=== PATIENT | male | born 1990 | race Caucasian/White ===

== ENCOUNTER 2018-08-08 09:01 | Emergency (ER) | payer MEDICAID ==
[~2018-08-08] VITALS: Ht 175.3 cm; Wt 70.7 kg
[~2018-08-08 09:01] MED LIST: HYDR50TA13 PO
[2018-08-08] MEDS ORDERED: FLUT9.9S NS (09:41)
[2018-08-08] MEDS ORDERED: DIPH25CA61 PO (09:41)
[2018-08-08] MEDS ORDERED: LORazepam 1MG TABLET ONE (09:46)
[2018-08-08] MEDS ORDERED: ONDANSETRON ODT 4 MG ONE (09:46)
[2018-08-08] MEDS ORDERED: THIAMINE 100MG TABLET ONE (09:46)
--- NOTE | 2018-08-08 09:49 | NUR ---
PATIENT MEDICATED AND RESTING WITH NO COMPLAINTS. FAMILY AT BEDSIDE.
[2018-08-08] MEDS ORDERED: THIAMINE 100MG TABLET PO ONE (10:00)
[2018-08-08] MEDS ORDERED: LORazepam 1MG TABLET PO ONE (10:00)
[2018-08-08] MEDS ORDERED: ONDANSETRON ODT 4 MG PO ONE (10:00)
--- NOTE | 2018-08-08 10:15 | NUR ---
RECEIVED REPORT FROM SHARA ALCANTAR. WAITING FOR LABS TO BE DONE.
[2018-08-08 10:42] LABS: BASOPHILS # (AUTO) 0.04 x10^3/uL (0-0.1); BASOPHILS % (AUTO) 0 % (0-1); EOSINOPHILS % (AUTO) 1 % (1-7); LYMPHOCYTES # (AUTO) 1.71 x10^3/uL (1-3.4); LYMPHOCYTES % (AUTO) 15 % (22-44); MD NO; MEAN CORPUSCULAR HEMOGLOBIN 29.9 pg (27.5-34.5); MEAN CORPUSCULAR HGB CONC 33.7 g/dL (33.2-36.2); MEAN CORPUSCULAR VOLUME 88.8 fL (81-97); MEAN PLATELET VOLUME 9.6 fL (7.4-10.4); MONOCYTES # (AUTO) 0.76 x10^3/uL (0.2-0.8); MONOCYTES % (AUTO) 7 % (2-9); NEUTROPHILS # (AUTO) 8.83 x10^3/uL (1.8-6.8); NEUTROPHILS % (AUTO) 77 % (42-75); PLATELET COUNT 169 x10^3/uL (130-400); RED BLOOD COUNT 5.67 x10^6/uL (4.38-5.82); RED CELL DISTRIBUTION WIDTH 13.9 % (9.4-14.8)
[2018-08-08 10:50] LABS: ALBUMIN 3.9 g/dL (3.4-5.0); ANION GAP 9 mmol/L (5-15); CHLORIDE 102 mmol/L (98-107); CREATININE 0.89 mg/dL (0.7-1.3)
--- NOTE | 2018-08-08 10:58 | NUR ---
CHART UP FOR MD RECHECK. PT AWARE.
[2018-08-08 11:39] VITALS: BP 128/85
== END 2018-08-08 11:41 | disposition home or self-care (01) ==
LOC: ED 10:33
DX: F10.220 Alcohol dependence with intoxication, uncomplicated (principal)
CPT/HCPCS: 36415; 80048; 80307; 82040; 83690; 85025; 99284; Q0162

== ENCOUNTER 2018-09-01 21:41 | Emergency (ER) | payer MEDICAID ==
[~2018-09-01] VITALS: Ht 175.3 cm; Wt 71.0 kg
[~2018-09-01 21:41] MED LIST changes: +DIPH25CA61 PO; +FLUT9.9S NS
--- NOTE | 2018-09-01 22:00 | NUR ---
ASSUMED CARE OF PATIENT. PATIENT BIB [facility] FOR ETOH WD. PT REPORTS HIS LAST DRINK WAS ONE HOUR AGO. PT REPORTS HE IS FEELING ANXIOUS AND HE HAS BEEN BINGE DRINKING SINCE August. VS STABLE. DR MARTINEZ HAS SEEN PATIENT. HEARING AID DISPENSER ON. NSR NOTED. CALL LIGHT IN PLACE WILL CONTINUE TO MONITOR.
[2018-09-01 22:37] LABS: BASOPHILS # (AUTO) 0.04 x10^3/uL (0-0.1); BASOPHILS % (AUTO) 1 % (0-1); EOSINOPHILS # (AUTO) 0.12 x10^3/uL (0-0.4); EOSINOPHILS % (AUTO) 2 % (1-7); LYMPHOCYTES # (AUTO) 2.57 x10^3/uL (1-3.4); LYMPHOCYTES % (AUTO) 44 % (22-44); MD NO; MEAN CORPUSCULAR HEMOGLOBIN 30.9 pg (27.5-34.5); MEAN CORPUSCULAR HGB CONC 33.7 g/dL (33.2-36.2); MEAN CORPUSCULAR VOLUME 91.5 fL (81-97); MEAN PLATELET VOLUME 9.5 fL (7.4-10.4); MONOCYTES # (AUTO) 0.69 x10^3/uL (0.2-0.8); MONOCYTES % (AUTO) 12 % (2-9); NEUTROPHILS # (AUTO) 2.49 x10^3/uL (1.8-6.8); NEUTROPHILS % (AUTO) 42 % (42-75); PLATELET COUNT 139 x10^3/uL (130-400); RED BLOOD COUNT 5.49 x10^6/uL (4.38-5.82); RED CELL DISTRIBUTION WIDTH 14.3 % (9.4-14.8)
[2018-09-01 22:41] LABS: ALANINE AMINOTRANSFERASE 166 U/L (12-78); ALBUMIN 4.1 g/dL (3.4-5.0); ANION GAP 13 mmol/L (5-15); CALCIUM 8.7 mg/dL (8.5-10.1); CHLORIDE 107 mmol/L (98-107); CREATININE 0.96 mg/dL (0.7-1.3)
[2018-09-01 22:43] LABS: ALKALINE PHOSPHATASE 95 U/L (45-117); BILIRUBIN,TOTAL 0.6 mg/dL (0.2-1.0); TOTAL PROTEIN 8.2 g/dL (6.4-8.2)
--- NOTE | 2018-09-01 23:03 | NUR ---
PT RESTING IN ROOM. NO ACUTE DISTRESS NOTED. CALL LIGHT IN PLACE. WILL CONTINUE TO MONITOR.
[2018-09-01 23:32] VITALS: BP 114/79
== END 2018-09-01 23:34 | disposition home or self-care (01) ==
LOC: ED 23:11
DX: F41.1 Generalized anxiety disorder (principal); F10.120 Alcohol abuse with intoxication, uncomplicated; F31.9 Bipolar disorder, unspecified
CPT/HCPCS: 36415; 71045; 80053; 80307; 85025; 93005; 99284

== ENCOUNTER 2018-10-07 02:19 | Emergency (ER) | payer MEDICAID ==
[~2018-10-07] VITALS: Ht 172.7 cm; Wt 75.0 kg
[2018-10-07] MEDS ORDERED: CHLO25CA9 PO (02:34)
--- NOTE | 2018-10-07 02:35 | NUR ---
[facility] STABLE HOME MED UPDATED PT IS RESTING NOW
--- NOTE | 2018-10-07 02:54 | NUR ---
RECEIVED REPORT FROM MACKENZIE RAMOS TO ASSUME CARE OF PTRegan APPLE AT BS FOR EKG.
--- NOTE | 2018-10-07 04:47 | NUR ---
given dc instruction pt understood pt up ambulated to check out no c/o
[2018-10-07 04:48] VITALS: BP 104/68
== END 2018-10-07 04:50 | disposition home or self-care (01) ==
LOC: ED 04:38
DX: F41.1 Generalized anxiety disorder (principal); F10.120 Alcohol abuse with intoxication, uncomplicated; R07.89 Other chest pain; F31.9 Bipolar disorder, unspecified; F17.200 Nicotine dependence, unspecified, uncomplicated
CPT/HCPCS: 71045; 93005; 99284

== ENCOUNTER 2019-02-10 02:12 | Emergency (ER) | payer MEDICAID ==
[~2019-02-10] VITALS: Ht 175.3 cm; Wt 64.0 kg
[~2019-02-10 02:12] MED LIST changes: +CHLO25CA9 PO
[2019-02-10] MEDS ORDERED: SODIUM CHLORIDE 0.9% 1,000ML IVBOLUS ONE (02:30)
[2019-02-10] MEDS ORDERED: SODIUM CHLORIDE FLUSH 10ML SYR IVF ONE (02:30)
[2019-02-10] MEDS ORDERED: LORazepam 2 MG/ML, 1ML IVPush PRN (02:30)
[2019-02-10] MEDS ORDERED: MAGNESIUM SULFATE 1 GM, THIAMINE 100 MG, FOLIC ACID 1 MG, MVI ADULT 10 ML in SODIUM CHL... IV ONE (02:30)
[2019-02-10] MEDS ORDERED: LORazepam 2 MG/ML, 1ML ONE (02:48)
[2019-02-10 03:02] LABS: BASOPHILS # (AUTO) 0.05 x10^3/uL (0-0.1); BASOPHILS % (AUTO) 0 % (0-1); EOSINOPHILS # (AUTO) 0.05 x10^3/uL (0-0.4); EOSINOPHILS % (AUTO) 0 % (1-7); LYMPHOCYTES # (AUTO) 3.87 x10^3/uL (1-3.4); LYMPHOCYTES % (AUTO) 24 % (22-44); MD NO; MEAN CORPUSCULAR HEMOGLOBIN 30.2 pg (27.5-34.5); MEAN CORPUSCULAR HGB CONC 33.5 g/dL (33.2-36.2); MEAN CORPUSCULAR VOLUME 90.3 fL (81-97); MEAN PLATELET VOLUME 8.8 fL (7.4-10.4); MONOCYTES # (AUTO) 0.93 x10^3/uL (0.2-0.8); MONOCYTES % (AUTO) 6 % (2-9); NEUTROPHILS # (AUTO) 11.42 x10^3/uL (1.8-6.8); NEUTROPHILS % (AUTO) 70 % (42-75); PLATELET COUNT 248 x10^3/uL (130-400); RED BLOOD COUNT 5.89 x10^6/uL (4.38-5.82); RED CELL DISTRIBUTION WIDTH 13.6 % (9.4-14.8)
[2019-02-10 03:14] LABS: ALANINE AMINOTRANSFERASE 45 U/L (12-78); ALBUMIN 4.2 g/dL (3.4-5.0); ANION GAP 16 mmol/L (5-15); CALCIUM 8.8 mg/dL (8.5-10.1); CHLORIDE 98 mmol/L (98-107); CREATININE 0.98 mg/dL (0.7-1.3)
[2019-02-10 03:17] LABS: ALKALINE PHOSPHATASE 78 U/L (45-117); BILIRUBIN,TOTAL 1.1 mg/dL (0.2-1.0); TOTAL PROTEIN 8.8 g/dL (6.4-8.2)
--- NOTE | 2019-02-10 03:38 | NUR ---
STARTED ON BANANA BAG. AMBULATORY TO RESTROOM C STEADY GAIT
--- NOTE | 2019-02-10 04:28 | NUR ---
MOTHER AT , REQUESTING TO TAKE PT TO [facility]. PA AWARE/. BANANA BAG INFUSING.
[2019-02-10 05:16] VITALS: BP 107/72
== END 2019-02-10 05:19 | disposition home or self-care (01) ==
LOC: ED 03:29
DX: F10.229 Alcohol dependence with intoxication, unspecified (principal); F17.210 Nicotine dependence, cigarettes, uncomplicated; R11.2 Nausea with vomiting, unspecified
CPT/HCPCS: 36415; 80053; 80307; 83690; 85025; 96361; 96374; 99283; J2060; J7030

== ENCOUNTER 2019-03-25 22:11 | Emergency (ER) | payer MEDICAID ==
[~2019-03-25] VITALS: Ht 175.3 cm; Wt 68.0 kg
[2019-03-25 22:17] VITALS: BP 144/88
[2019-03-25] MEDS ORDERED: ONDANSETRON 2MG/ML, 2ML ONE (23:17)
[2019-03-25] MEDS ORDERED: ONDANSETRON 2MG/ML, 2ML IVPush ONE (23:30)
== END 2019-03-25 23:36 | disposition home or self-care (01) ==
LOC: ED 23:05
DX: F10.120 Alcohol abuse with intoxication, uncomplicated (principal); F17.200 Nicotine dependence, unspecified, uncomplicated; F41.9 Anxiety disorder, unspecified; F32.9 Major depressive disorder, single episode, unspecified; Y90.0 Blood alcohol level of less than 20 mg/100 ml
CPT/HCPCS: 93005; 99283

== ENCOUNTER 2019-04-22 18:27 | Emergency (ER) | payer MEDICAID ==
[~2019-04-22] VITALS: Ht 175.3 cm; Wt 68.0 kg
[2019-04-22] MEDS ORDERED: ONDANSETRON ODT 8 MG ONE (18:56)
[2019-04-22] MEDS ORDERED: ONDANSETRON ODT 8 MG PO ONE (19:00)
[2019-04-22] MEDS ORDERED: PLEASE ENTER HEIGHT AND WEIGHT MC SCH (19:00)
--- NOTE | 2019-04-22 19:07 | NUR ---
LABS DRAWN BY TECH. [facility] GIVEN PER ERP ORDER FOR NAUSEA. URINE COLLECTED/SENT TO LAB. CALL LIGHT WITHIN REACH. VSS.
[2019-04-22 19:15] LABS: CULTURE INDICATED? NO; MICROSCOPIC NOT IND
[2019-04-22 19:21] LABS: ALANINE AMINOTRANSFERASE 85 U/L (12-78); ALBUMIN 4.3 g/dL (3.4-5.0); ANION GAP 19 mmol/L (5-15); CALCIUM 8.6 mg/dL (8.5-10.1); CHLORIDE 94 mmol/L (98-107); CREATININE 0.85 mg/dL (0.7-1.3)
[2019-04-22 19:22] LABS: BASOPHILS # (AUTO) 0.04 x10^3/uL (0-0.1); BASOPHILS % (AUTO) 0 % (0-1); EOSINOPHILS # (AUTO) 0.06 x10^3/uL (0-0.4); EOSINOPHILS % (AUTO) 1 % (1-7); LYMPHOCYTES # (AUTO) 3.59 x10^3/uL (1-3.4); LYMPHOCYTES % (AUTO) 26 % (22-44); MD NO; MEAN CORPUSCULAR HEMOGLOBIN 30.5 pg (27.5-34.5); MEAN CORPUSCULAR VOLUME 89.7 fL (81-97); MEAN PLATELET VOLUME 9.7 fL (7.4-10.4); MONOCYTES # (AUTO) 0.59 x10^3/uL (0.2-0.8); MONOCYTES % (AUTO) 4 % (2-9); NEUTROPHILS % (AUTO) 69 % (42-75); PLATELET COUNT 168 x10^3/uL (130-400); RED BLOOD COUNT 5.75 x10^6/uL (4.38-5.82); RED CELL DISTRIBUTION WIDTH 13.5 % (9.4-14.8)
[2019-04-22 19:23] LABS: ALKALINE PHOSPHATASE 67 U/L (45-117); BILIRUBIN,TOTAL 1.9 mg/dL (0.2-1.0); TOTAL PROTEIN 8.4 g/dL (6.4-8.2)
--- NOTE | 2019-04-22 19:41 | NUR ---
PT TOLERATED PO CHALLENGE WELL, NO N/V DURING ED STAY.
--- NOTE | 2019-04-22 20:45 | NUR ---
WARM BLANKET PROVIDED, CALL LIGHT WITHIN REACH. AWAITING RECHECK BY ERP.
[2019-04-22 20:48] VITALS: BP 118/81
--- NOTE | 2019-04-22 21:48 | NUR ---
REPORT RECEIVED FROM ORTIZ RENE. ASSUMED CARE OF THIS PATIENT.
--- NOTE | 2019-04-22 21:51 | NUR ---
REPORT TO DAVID ALCANTAR.
--- NOTE | 2019-04-22 22:35 | NUR ---
Patient/Caregiver given discharge instructions and they have confirmed that they understand the instructions. Patient ambulatory with steady gait. PT PROVIDED WITH REHAB RESOURCES. DENIED ANY QUESTIONS IN REGARDS TO RESOURCES OR DISCHARGE.
== END 2019-04-22 22:38 | disposition home or self-care (01) ==
LOC: MERGE 18:27 → ED 22:05
DX: F10.20 Alcohol dependence, uncomplicated (principal); K70.9 Alcoholic liver disease, unspecified; M79.10 Myalgia, unspecified site; Z72.9 Problem related to lifestyle, unspecified; Y90.9 Presence of alcohol in blood, level not specified
CPT/HCPCS: 36415; 80053; 80307; 81003; 83690; 83735; 85025; 99283; Q0162

== ENCOUNTER 2019-07-04 15:56 | Emergency (ER) | payer MEDICAID ==
[~2019-07-04] VITALS: Ht 172.7 cm; Wt 72.2 kg
[~2019-07-04 15:56] MED LIST changes: -HYDR50TA13 PO; +HYDR50TA99 PO
[2019-07-04 16:00] VITALS: BP 116/82
[2019-07-04] MEDS ORDERED: ONDANSETRON ODT 4 MG PO ONE (16:30)
[2019-07-04] MEDS ORDERED: ONDANSETRON ODT 4 MG ONE (16:37)
== END 2019-07-04 17:08 | disposition home or self-care (01) ==
LOC: ED 15:58
DX: K52.29 Other allergic and dietetic gastroenteritis and colitis (principal); R11.2 Nausea with vomiting, unspecified; R94.31 Abnormal electrocardiogram [ECG] [EKG]
CPT/HCPCS: 93005; 99283

== ENCOUNTER 2019-07-23 00:14 | Emergency (ER) | payer MEDICAID ==
[~2019-07-23] VITALS: Ht 172.7 cm; Wt 73.0 kg
[2019-07-23 00:18] VITALS: BP 137/91
[2019-07-23] MEDS ORDERED: THIAMINE 100MG TABLET ONE (00:24)
[2019-07-23] MEDS ORDERED: THIAMINE 100MG TABLET PO ONE (00:30)
== END 2019-07-23 00:40 | disposition home or self-care (01) ==
LOC: ED 00:15
DX: F10.10 Alcohol abuse, uncomplicated (principal); F41.9 Anxiety disorder, unspecified; Y90.0 Blood alcohol level of less than 20 mg/100 ml
CPT/HCPCS: 99283

== ENCOUNTER 2019-11-30 13:02 | Emergency (ER) | payer MEDICAID ==
[~2019-11-30] VITALS: Ht 172.7 cm; Wt 69.5 kg
[2019-11-30 14:00] LABS: BASOPHILS # (AUTO) 0.05 x10^3/uL (0-0.1); BASOPHILS % (AUTO) 1 % (0-1); EOSINOPHILS # (AUTO) 0.03 x10^3/uL (0-0.4); EOSINOPHILS % (AUTO) 0 % (1-7); LYMPHOCYTES # (AUTO) 2.22 x10^3/uL (1-3.4); LYMPHOCYTES % (AUTO) 32 % (22-44); MD NO; MEAN CORPUSCULAR HEMOGLOBIN 30.6 pg (27.5-34.5); MEAN CORPUSCULAR HGB CONC 33.8 g/dL (33.2-36.2); MEAN CORPUSCULAR VOLUME 90.6 fL (81-97); MEAN PLATELET VOLUME 9.2 fL (7.4-10.4); MONOCYTES # (AUTO) 0.32 x10^3/uL (0.2-0.8); MONOCYTES % (AUTO) 5 % (2-9); NEUTROPHILS # (AUTO) 4.34 x10^3/uL (1.8-6.8); NEUTROPHILS % (AUTO) 62 % (42-75); PLATELET COUNT 153 x10^3/uL (130-400); RED BLOOD COUNT 5.55 x10^6/uL (4.38-5.82); RED CELL DISTRIBUTION WIDTH 14.1 % (9.4-14.8)
[2019-11-30] MEDS ORDERED: SODIUM CHLORIDE 0.9% 1,000ML IVBOLUS ONE ×2 (14:00→15:00)
[2019-11-30] MEDS ORDERED: THIAMINE 100MG TABLET PO ONE (14:00)
[2019-11-30] MEDS ORDERED: SODIUM CHLORIDE FLUSH 10ML SYR IVF ONE (14:00)
[2019-11-30] MEDS ORDERED: LORazepam 2 MG/ML, 1ML IVPush PRN (14:00)
[2019-11-30 14:10] LABS: ALBUMIN 4.4 g/dL (3.4-5.0); ANION GAP 13 mmol/L (5-15); CALCIUM 8.8 mg/dL (8.5-10.1); CHLORIDE 100 mmol/L (98-107)
[2019-11-30 14:13] LABS: ALANINE AMINOTRANSFERASE 106 U/L (12-78); ALKALINE PHOSPHATASE 73 U/L (45-117); BILIRUBIN,TOTAL 1.3 mg/dL (0.2-1.0); CREATININE 1.06 mg/dL (0.7-1.3); TOTAL PROTEIN 8.7 g/dL (6.4-8.2)
[2019-11-30] MEDS ORDERED: LORazepam 2 MG/ML, 1ML ONE (14:30)
[2019-11-30] MEDS ORDERED: THIAMINE 100MG TABLET ONE (14:31)
[2019-11-30 15:19] VITALS: BP 138/88
--- NOTE | 2019-11-30 15:19 | NUR ---
DISCHARGE INSTRUCTIONS FOR DETOX GIVEN, EXPLAINED DC INSTRUCTIONS
== END 2019-11-30 15:27 | disposition home or self-care (01) ==
LOC: ED 14:05
DX: F10.239 Alcohol dependence with withdrawal, unspecified (principal); R45.1 Restlessness and agitation; R11.2 Nausea with vomiting, unspecified; R94.31 Abnormal electrocardiogram [ECG] [EKG]; Y90.9 Presence of alcohol in blood, level not specified
CPT/HCPCS: 36415; 80053; 83605; 85025; 93005; 96361; 96374; 99284; J2060; J7030